=== PATIENT | male | born 1990 | race Caucasian/White ===

== ENCOUNTER 2019-04-07 17:02 | Emergency (ER) | payer OTHER, SELFPAY ==
[2019-04-07 17:10] VITALS: BP 126/80; PULSE 86; RESP 18; TEMP 36.9; O2SAT 98
--- NOTE | 2019-04-07 17:17 | ED.MALEGU ---
HPI - Male Genitourinary General Chief complaint: Urogenital-Male Stated complaint: groan pain Time Seen by Provider: 04/07/19 17:17 Source: patient and RN notes reviewed History of Present Illness HPI Narrative: Patient is a 28-year-old male that presents the urgent care with complaints of testicular pain intermittently that last approximately 5 minutes. Patient states is been ongoing for 2 to 3 months and he does not have a PCP in the area. Patient states that he just moved here and has not established care. Patient states that he would not even call the discomfort pain . Patient state is not painful enough to cause any distraction or to use any medication. Patient states he also has flank pain intermittently. Denies of any blood in the urine, frequency, urgency, difficulty urinating, change in stream. Patient states that there may be some on and off testicular swelling that they appear to be normal size. Patient denies any history of a hernia. No other acute complaints. No acute distress noted. Patient aware of the plan of care. Related Data Home Medications Medication Instructions Recorded Confirmed Famitodine 04/07/19 Allergies Allergy/AdvReac Type Severity Reaction Status Date / Time omeprazole AdvReac Intermediate Dizziness Verified 04/07/19 17:26 Review of Systems Review of Systems: Narrative: CONSTITUTIONAL: Denies fever, chills, or sweats. EYES: Denies visual changes, redness, or discharge. ENT: Denies rhinorrhea, congestion, sore throat, or otalgia. CARDIOVASCULAR: Denies chest pain, palpitations, or edema. RESPIRATORY: Denies cough or dyspnea. GASTROINTESTINAL: Denies abdominal pain, nausea, vomiting, or diarrhea. GENITOURINARY: Reports of intermittent testicular pain SKIN: Denies rash or itching. MUSCULOSKELETAL: Denies back pain, joint pain, or myalgia. NEUROLOGIC: Denies headache, numbness, or weakness. All other systems reviewed are negative, except as documented in HPI. PMFSH Social History Social History Smoking status: Never smoker Alcohol intake: never Comments At the time of my signature, I reviewed and agree with the nursing past medical, surgical, social, and family history. There is no relevant family history pertinent to the patient complaint. Exam Narrative: Exam Narrative: GENERAL: This is a well-nourished, well-developed patient, in no apparent distress. HEAD: normocephalic, atraumatic. EYES: PERRL. Sclera clear/white. Vision is grossly intact. EARS: External ears normal NOSE: External nose normal with no obvious nasal discharge THROAT: Mucous membranes moist NECK: Neck supple CARDIOVASCULAR: Regular rate and rhythm without murmurs, gallops, or rubs. RESPIRATORY: Clear to auscultation. Breath sounds equal bilaterally. No wheezes, rales, or rhonchi. : Patient is refusing exam. SKIN: warm, intact with no suspicious lesions or rash, good texture and turgor. NEURO: awake, alert, and oriented to person, place and time. There were no obvious focal neurologic abnormalities. EXTREMITIES: No clubbing, cyanosis, or edema. BACK: Negative bilateral CVA tenderness Course Vital Signs Vital signs: Vital Signs Temperature 98.5 F 04/07/19 17:10 Pulse Rate 86 04/07/19 17:10 Respiratory Rate 18 04/07/19 17:10 Blood Pressure 126/80 04/07/19 17:10 Pulse Oximetry 98 04/07/19 17:10 Temperature 98.5 F 04/07/19 17:10 Pulse Rate 86 04/07/19 17:10 Respiratory Rate 18 04/07/19 17:10 Blood Pressure 126/80 04/07/19 17:10 Pulse Oximetry 98 04/07/19 17:10 Reviewed MDM - Male Genitourinary MDM Narrative Medical decision making narrative: Explained to the patient it is difficult to evaluate or assess due to refusal of exam. However, considering the intermittent pain is not persistent and is been off and on for 2 to 3 months, I would not necessarily deem that his condition is an emergency. Reviewed lab results with the patient. He is aware that his ur
== END 2019-04-07 17:50 | disposition home or self-care (01) ==
PROVIDERS: Emergency Provider Nurse Practitioner Family
DX: N50.819 Testicular pain, unspecified (principal); K21.9 Gastro-esophageal reflux disease without esophagitis
CPT/HCPCS: 81003; 99212; G0463